=== PATIENT | female | born 1965 | race Caucasian/White ===

== ENCOUNTER 2018-10-20 05:56 | Day surgery (SDC) | payer BC ==
--- NOTE | 2018-10-19 09:16 | HP ---
HISTORY OF PRESENT ILLNESS: The patient is a 53-year-old female, right-hand dominant, who has an 18-month history of pain and tingling in both hands, left greater than right. She was diagnosed with carpal tunnel syndrome 20 years ago and has used splints intermittently. Injection a year ago gave her some temporary relief, but recently she has noticed progressive pain and tingling in the median nerve distribution, left greater than right, despite rest, splinting, and use of anti-inflammatory medications, and the previous injection. PAST MEDICAL HISTORY: The patient is otherwise in good health. She has history of anxiety, anemia, and asthma. CURRENT MEDICATIONS: Include Symbicort. ALLERGIES: SHE IS ALLERGIC TO NAPROXEN. FAMILY HISTORY: Otherwise, unremarkable. SOCIAL HISTORY: Otherwise, unremarkable. REVIEW OF SYSTEMS: Otherwise, unremarkable. PHYSICAL EXAMINATION: GENERAL: Reveals a healthy, heavy-set female. HEENT: Unremarkable. NECK: Supple. CHEST: Clear. HEART: Regular rate and rhythm. ABDOMEN: Soft and nontender. PELVIC: Deferred. RECTAL: Deferred. BREAST: Deferred. EXTREMITIES: Pertinent findings are related to both wrists. On the left side, there is some questionable thenar atrophy. There is tenderness over the median nerve bilaterally. There is full range of motion bilaterally. There is a positive Tinel's sign bilaterally, left greater than right. Negative Phalen's test bilaterally. There is decreased sensation in the median nerve distribution bilaterally, left greater than right. Motor strength appears to be intact. There is good capillary refill. DIAGNOSTIC STUDIES: Reveal [id number] carpal tunnel syndrome bilaterally, worse on the left with axonal damage on the left. IMPRESSION: Bilateral carpal tunnel syndrome, left greater than right. PLAN: Endoscopic possible open left carpal tunnel release. The nature of the surgery, length of recovery, and potential complications such as infection, loss of motion, incomplete relief, nerve injury, recurrence, and need for additional treatment and repeat surgery have been discussed in detail. She will probably require similar procedure on the right side when she has recovered from the left. Job ID: [id number]
[2018-10-19 12:06] VITALS: BMI 45.7
[2018-10-20] MEDS ORDERED: Lidocaine 1% (PF) 30 ML VIAL ONE (06:34)
[2018-10-20 07:15] LABS: #Basophils 0.1 thou/uL (0.0-0.2); #Eosinphils 0.1 thou/uL (0.0-0.7); #Lymphocytes 1.9 thou/uL (1.20-3.40); #Monocytes 0.7 thou/uL (0.11-0.59); #Neutrophils 4.5 thou/uL (1.40-6.50); %Basophils 1.3 % (0.0-1.0); %Eosinophils 1.3 % (0.0-10.0); %Lymphocytes 26.1 % (21.0-51.0); %Monocytes 9.4 % (0.0-10.0); %Neutrophils 61.9 % (42.0-75.0); Hemoglobin 12.9 g/dL (12.0-16.0); Mean Corpuscular HGB CONC 33.2 g/dL (32.0-36.0); Mean Corpuscular Hemoglobin 27.6 pg (27.0-31.0); Mean Platelet Volume 7.5 fL (7.4-10.4); Platelet Count 289 thou/uL (130-400); RBC Distribution Width 14.6 % (11.5-14.5); Red Blood Cell (RBC) Count 4.67 mill/uL (4.20-5.40); White Blood Cell (WBC) Count 7.3 thou/uL (4.8-10.8)
[2018-10-20] MEDS ORDERED: Midazolam HCl 2 mg/2 ml Vial ONE (07:20)
[2018-10-20] MEDS ORDERED: Fentanyl 100 MCG/2 ML VIAL ONE ×2 (07:27→08:39)
[2018-10-20] MEDS ORDERED: Morphine 4 MG/ML VIAL ONE (09:10)
[2018-10-20] MEDS ORDERED: HYDROcodone/Acetaminophen 5/325 mg Tablet ONE (10:22)
--- NOTE | 2018-10-20 12:26 | OP ---
DATE OF PROCEDURE: 10/20/2018 ANESTHESIA: General. PREOPERATIVE DIAGNOSIS: Left carpal tunnel syndrome. POSTOPERATIVE DIAGNOSIS: Left carpal tunnel syndrome. PROCEDURE PERFORMED: Left endoscopic carpal tunnel release. DESCRIPTION OF PROCEDURE: After satisfactory anesthesia was induced in supine position, the patient was prepped and draped in routine manner. Field block was accomplished with 1% plain lidocaine. The left arm was elevated and exsanguinated with Esmarch bandage, and the tourniquet inflated to 250 mmHg. A 2-cm transverse incision was made in the proximal wrist flexion crease, carried down through the subcutaneous tissues and bleeding points were controlled with Bovie cautery. Using sharp and blunt dissection, a distally based flap at deep forearm fascia was developed and retracted distally. Palmaris longus tendon retracted radially. Proximal edge of the deep forearm fascia was split under direct visualization with small scissors to make sure there was no proximal impingement of the median nerve. Synovial elevator was introduced beneath the transverse carpal ligament and the synovium cleaned from the under surface. Carpal tunnel dilators were inserted. The [place] [employer] endoscopic carpal tunnel system was introduced beneath the transverse carpal ligament in line with the ring finger. The distal edge of the ligament was easily identified and divided in a distal to proximal direction by pulling the trigger of the assembly and engaging the knife and withdrawing the scope proximally. This was done in several stages to make sure there was complete division of the transverse carpal ligament, which was documented with the video printer. After withdrawing the scope, the carpal tunnel dilator could be inserted into the carpal tunnel and there was markedly improved passage and subcutaneous position of the instrument. The scope was reintroduced into the carpal tunnel. There was wide separation of the two leaves of the transverse carpal ligament. The tourniquet was released after 6 minutes. There was no excessive bleeding, and the scope was withdrawn. The wound was then thoroughly irrigated and closed with a running subcuticular 3-0 nylon. Sterile dressing was applied, and the patient was placed in a Velcro wrist splint. She was awakened and taken to recovery room in stable condition. There were no apparent intraoperative complications. The estimated blood loss was negligible. The patient will be discharged home in satisfactory condition, started on ice elevation, and given written wound care instructions. She was given a prescription for [place] 5 for pain, 24 tablets. She will be rechecked in my office in 10 to 14 days or sooner if there are any problems prior to that time. Job ID: [id number]
--- NOTE | 2018-10-20 20:27 | EKG ---
Test Reason : PREOP Blood Pressure : / mmHG Vent. Rate : 074 BPM Atrial Rate : 074 BPM P-R Int : 160 ms QRS Dur : 088 ms QT Int : 380 ms P-R-T Axes : 030 010 100 degrees QTc Int : 421 ms Sinus rhythm with occasional Premature ventricular complexes Nonspecific T wave abnormality Abnormal ECG No previous ECGs available Confirmed by VALERIE BELLO, DR. Swartz ([id number]) on 10/20/2018 8:27:27 PM Referred By: ERIBERTO Confirmed By:DR. Sheridan PADILLA MD
== END 2018-10-20 11:35 | disposition home or self-care (01) ==
LOC: SDC 05:56
PROVIDERS: ATTEND Orthopaedic Surgery
PROC: 01N54ZZ Release Median Nerve, Percutaneous Endoscopic Approach (ICD-10-PCS; principal; 2018-10-20)
DX: G56.03 Carpal tunnel syndrome, bilateral upper limbs (principal); Z79.899 Other long term (current) drug therapy; Z88.8 Allergy status to other drugs, medicaments and biological substances
CPT/HCPCS: 85025; 93005; 93010; J0690; J2001; J2250; J2270; J3010